=== PATIENT | male | born 1965 | race Asian ===

== ENCOUNTER 2019-07-06 12:28 | Emergency (ER) | payer MEDICAID, OTHER ==
[~2019-07-06] VITALS: Ht 167.6 cm; Wt 81.8 kg
[~2019-07-06 12:28] MED LIST: AMLO5TAB9 PO; BENZ1TAB70 PO; CLON0.1T83 PO; DIVA-78 PO; HYDR25TA84 PO; QUET400T PO; SIMV-261 PO
[2019-07-06] MEDS ORDERED: MORPHINE SULFATE 4 MG/ML SYRINGE IVP ONE (14:00)
[2019-07-06] MEDS ORDERED: SODIUM CHLORIDE 0.9% 1,000 ML IV ONE (14:00)
[2019-07-06] MEDS ORDERED: HALOPERIDOL LACTATE 5 MG/ML VIAL IM ONE (14:00)
[2019-07-06] MEDS ORDERED: DiphenhydrAMINE HCL 50 MG/ML VIAL IVP ONE (14:00)
[2019-07-06] MEDS ORDERED: BENZ1TAB10 PO (14:03)
[2019-07-06 14:42] LABS: BASOPHILS % (AUTO) 0.4 % (0.0-2.0); HEMATOCRIT 40.3 % (41-53); HEMOGLOBIN 13.8 g/dL (13.5-17.5); LYMPHOCYTES # (AUTO) 3.3 K/uL (1.0-4.8); LYMPHOCYTES % (AUTO) 32.7 % (22.0-44.0); MEAN CORPUSCULAR HEMOGLOBIN 31.5 pg (26.0-34.0); MEAN CORPUSCULAR HGB CONC 34.3 G/dL (31.0-37.0); MEAN CORPUSCULAR VOLUME 92 fL (80-100); MONOCYTES # (AUTO) 0.7 K/uL (0.1-1.0); MONOCYTES % (AUTO) 6.7 % (2.0-9.0); NEUTROPHILS # (AUTO) 5.6 K/uL (1.8-7.7); NEUTROPHILS % (AUTO) 55.2 % (40.0-70.0); PLATELET COUNT (AUTO) 295 K/uL (150-450); RED BLOOD CELL COUNT(AUTO) 4.38 MIL/uL (4.50-5.90); RED CELL DISTRIBUTION WIDTH 13.7 % (11.5-14.5)
[2019-07-06 15:02] LABS: ALANINE AMINOTRANSFERASE 22 U/L (12-78); ALBUMIN 3.5 g/dL (3.4-5.0); ALKALINE PHOSPHATASE 67 U/L (46-116); ANION GAP 6 mmol/L (8-16); ASPARTATE AMINOTRANSFERASE 18 U/L (15-37); BILIRUBIN,TOTAL 0.2 mg/dL (0.1-1.0); CALCIUM, TOTAL 9.2 mg/dL (8.8-10.5); CARBON DIOXIDE 29 mmol/L (22-29); CHLORIDE 92 mmol/L (98-107); GLOMERULAR FILTR. RATE CALC > 60 mL/min (>60); GLUCOSE,RANDOM 112 mg/dL (70-110); SODIUM SERUM 127 mmol/L (136-145); TOTAL PROTEIN, SERUM 7.8 g/dL (6.4-8.2); UREA NITROGEN, BLOOD 6 mg/dL (7-18)
[2019-07-06 15:12] LABS: POTASSIUM 2.7 mmol/L (3.5-5.1)
[2019-07-06] MEDS ORDERED: CLINDAMYCIN 900 MG/D5% WATER 50 ML IV ONE (15:15)
[2019-07-06] MEDS ORDERED: POTASSIUM CHLORIDE 20 MEQ ER TABLET PO PRN (15:30)
[2019-07-06] MEDS: POTASSIUM CHL 10 MEQ/WATER 50 ML IV PRN ×3 (15:41→18:50)
[2019-07-06 21:11] VITALS: BP 132/79
== END 2019-07-06 21:32 | disposition short-term general hospital (02) ==
LOC: EMS 12:28
DX: S60.444A External constriction of right ring finger, initial encounter (principal); E87.6 Hypokalemia; I96 Gangrene, not elsewhere classified; I10 Essential (primary) hypertension; E78.00 Pure hypercholesterolemia, unspecified; F20.9 Schizophrenia, unspecified; F17.210 Nicotine dependence, cigarettes, uncomplicated; W49.04XA Ring or other jewelry causing external constriction, initial encounter; Y93.89 Activity, other specified; Y92.89 Other specified places as the place of occurrence of the external cause; Y99.8 Other external cause status
CPT/HCPCS: 36415; 73130; 73140; 80053; 85025; 93005; 96365; 96366; 96368; 96372; 96375; 99285; J1200; J1630; J2270; J3480; J3490; J7030

== ENCOUNTER → 2019-07-30 | Outpatient (CLI) | payer OTHER ==
[~2019-07-30] MED LIST changes: +BENZ1TAB10 PO; -BENZ1TAB70 PO
== END | disposition home or self-care (01) ==
LOC: HBOWC 09:18
PROVIDERS: ATTEND Nurse Practitioner Adult Health
DX: S61.204D Unspecified open wound of right ring finger without damage to nail, subsequent encounter (principal); I10 Essential (primary) hypertension; E78.5 Hyperlipidemia, unspecified; I96 Gangrene, not elsewhere classified; E78.00 Pure hypercholesterolemia, unspecified; F17.210 Nicotine dependence, cigarettes, uncomplicated; X58.XXXD Exposure to other specified factors, subsequent encounter

== ENCOUNTER 2021-11-02 20:15 | Inpatient (IN) | payer OTHER ==
[~2021-11-02] VITALS: Ht 165.1 cm; Wt 59.0 kg
[~2021-11-02 20:15] MED LIST changes: +AMLO-257 PO; -AMLO5TAB9 PO; -BENZ1TAB10 PO; +BENZ1TAB96 PO; +CLON0.1T2 PO; -CLON0.1T83 PO; +DIVA-112 PO; -DIVA-78 PO
[2021-11-02 22:48] LABS: BASOPHILS % (AUTO) 0.5 % (0.0-2.0); EOSINOPHILS % (AUTO) 0.8 % (1.0-6.0); HEMATOCRIT 35.1 % (41-53); HEMOGLOBIN 11.9 g/dL (13.5-17.5); LYMPHOCYTES # (AUTO) 2.7 K/uL (1.0-4.8); LYMPHOCYTES % (AUTO) 19.9 % (22.0-44.0); MEAN CORPUSCULAR HEMOGLOBIN 30.5 pg (26.0-34.0); MEAN CORPUSCULAR HGB CONC 33.9 G/dL (31.0-37.0); MEAN CORPUSCULAR VOLUME 90 fL (80-100); MONOCYTES # (AUTO) 1.5 K/uL (0.1-1.0); MONOCYTES % (AUTO) 11.6 % (2.0-9.0); NEUTROPHILS % (AUTO) 67.2 % (40.0-70.0); PLATELET COUNT (AUTO) 533 K/uL (150-450); RED BLOOD CELL COUNT(AUTO) 3.91 MIL/uL (4.50-5.90); RED CELL DISTRIBUTION WIDTH 14.2 % (11.5-14.5)
[2021-11-02 22:59] LABS: ANION GAP 8 mmol/L (8-16); CALCIUM, TOTAL 8.7 mg/dL (8.8-10.5); CARBON DIOXIDE 27 mmol/L (22-29); CHLORIDE 95 mmol/L (98-107); CREATININE 0.89 mg/dL (0.60-1.30); GLUCOSE,RANDOM 106 mg/dL (70-110); POTASSIUM 3.7 mmol/L (3.5-5.1); SODIUM SERUM 130 mmol/L (136-145); UREA NITROGEN, BLOOD 8 mg/dL (7-18)
[2021-11-02 23:01] LABS: INR 1.1 (0.9-1.1); PROTHROMBIN TIME 11.3 SEC (9.4-11.6)
[2021-11-02 23:03] LABS: GLOMERULAR FILTR. RATE CALC > 60 mL/min (>60)
[2021-11-02 23:11] LABS: ALANINE AMINOTRANSFERASE 45 U/L (12-78); ALBUMIN 2.6 g/dL (3.4-5.0); ALKALINE PHOSPHATASE 104 U/L (46-116); ASPARTATE AMINOTRANSFERASE 36 U/L (15-37); BILIRUBIN,TOTAL 0.3 mg/dL (0.1-1.0); TOTAL PROTEIN, SERUM 7.1 g/dL (6.4-8.2)
[2021-11-02] MEDS ORDERED: SODIUM CHLORIDE 0.9% 100 ML ONE (23:12)
[2021-11-02] MEDS ORDERED: IOHEXOL 350 MG/ML 100 ML VIAL ONE (23:13)
[2021-11-02 23:22] LABS: COVID AG,FIA SOURCE NASAL SWAB
[2021-11-02] MEDS ORDERED: VANCOMYCIN 1GM/WATER(PEG/NADA) 200 ML IV ONE (23:30)
[2021-11-02] MEDS ORDERED: SODIUM CHLORIDE 0.9% 1,000 ML IV ONE (23:30)
[2021-11-02] MEDS ORDERED: VANCOMYCIN HCL 1 GM/D5% WATER 200 ML IV ONE (23:30)
[2021-11-03 03:00] VITALS: BP 120/62
[2021-11-03] MEDS ORDERED: ONDANSETRON HCL 4 MG/2 ML VIAL IVP PRN (04:15)
[2021-11-03] MEDS ORDERED: MORPHINE SULFATE 2 MG/ML SYRINGE IVP PRN (04:15)
[2021-11-03] MEDS: SODIUM CHLORIDE 0.9% 1,000 ML IV SCH ×2 (04:35→16:36)
[2021-11-03 08:18] VITALS: BP 116/58
[2021-11-03] MEDS: VANCOMYCIN HCL 1 GM/D5% WATER 200 ML IV SCH ×2 (08:53→21:14)
[2021-11-03] MEDS: HydrALAZINE HCL 25 MG TABLET PO SCH ×3 (08:54→21:14)
[2021-11-03] MEDS: CloNIDine HCL 0.1 MG TABLET PO SCH ×2 (08:54→21:14)
[2021-11-03] MEDS: AmLODIPine BESYLATE 5 MG TABLET PO SCH (08:54)
[2021-11-03] MEDS: HEPARIN SODIUM,PORCINE 5,000 UNITS/ML VIAL SQ SCH ×2 (08:54→16:35)
[2021-11-03] MEDS: BENZTROPINE MESYLATE 1 MG TABLET PO SCH (08:54)
[2021-11-03] MEDS: DIVALPROEX SODIUM 500 MG DR TABLET PO SCH ×2 (08:57→21:14)
[2021-11-03] MEDS ORDERED: BUPR-49 PO (11:55)
[2021-11-03] MEDS ORDERED: QUET100T34 PO (11:55)
[2021-11-03] MEDS: SIMVASTATIN 40 MG TABLET PO SCH (13:00)
[2021-11-03 16:19] VITALS: BP 112/66
[2021-11-03 19:37] VITALS: BP 109/60
[2021-11-03] MEDS: NICOTINE 21 MG/24 HOUR PATCH TD SCH (21:13)
[2021-11-03] MEDS: QUEtiapine FUMARATE 200 MG TABLET PO SCH (21:15)
[2021-11-04] MEDS: HEPARIN SODIUM,PORCINE 5,000 UNITS/ML VIAL SQ SCH ×4 (00:16→16:00)
[2021-11-04] MEDS: SODIUM CHLORIDE 0.9% 1,000 ML IV SCH ×3 (00:16→20:15)
[2021-11-04 04:33] VITALS: BP 124/68
[2021-11-04 07:37] VITALS: BP 135/80
[2021-11-04] MEDS: AmLODIPine BESYLATE 5 MG TABLET PO SCH (09:33)
[2021-11-04] MEDS: HydrALAZINE HCL 25 MG TABLET PO SCH ×3 (09:33→20:02)
[2021-11-04] MEDS: VANCOMYCIN HCL 1 GM/D5% WATER 200 ML IV SCH ×2 (09:33→20:00)
[2021-11-04] MEDS: BENZTROPINE MESYLATE 1 MG TABLET PO SCH (09:33)
[2021-11-04] MEDS: NICOTINE 21 MG/24 HOUR PATCH TD SCH (09:34)
[2021-11-04] MEDS: CloNIDine HCL 0.1 MG TABLET PO SCH ×2 (09:34→20:02)
[2021-11-04] MEDS: DIVALPROEX SODIUM 500 MG DR TABLET PO SCH ×2 (09:34→20:03)
[2021-11-04] MEDS: SIMVASTATIN 40 MG TABLET PO SCH (09:34)
[2021-11-04 16:02] VITALS: BP 123/74
[2021-11-04 19:46] VITALS: BP 120/59
[2021-11-04] MEDS: QUEtiapine FUMARATE 200 MG TABLET PO SCH (20:02)
[2021-11-05 04:29] VITALS: BP 114/58
[2021-11-05] MEDS: HEPARIN SODIUM,PORCINE 5,000 UNITS/ML VIAL SQ SCH ×6 (08:00→23:56)
[2021-11-05 08:39] VITALS: BP 103/61
[2021-11-05] MEDS: HydrALAZINE HCL 25 MG TABLET PO SCH ×3 (09:00→20:08)
[2021-11-05] MEDS: BENZTROPINE MESYLATE 1 MG TABLET PO SCH (09:00)
[2021-11-05] MEDS: SIMVASTATIN 40 MG TABLET PO SCH (09:01)
[2021-11-05] MEDS: AmLODIPine BESYLATE 5 MG TABLET PO SCH (09:01)
[2021-11-05] MEDS: CloNIDine HCL 0.1 MG TABLET PO SCH ×2 (09:01→20:07)
[2021-11-05] MEDS: NICOTINE 21 MG/24 HOUR PATCH TD SCH (09:01)
[2021-11-05] MEDS: DIVALPROEX SODIUM 500 MG DR TABLET PO SCH ×2 (09:01→20:09)
[2021-11-05] MEDS: SODIUM CHLORIDE 0.9% 1,000 ML IV SCH ×2 (09:51→20:11)
[2021-11-05] MEDS: VANCOMYCIN HCL 1 GM/D5% WATER 200 ML IV SCH ×2 (09:51→20:06)
[2021-11-05] MEDS: ALPRAZolam 1 MG TABLET PO SCH ×2 (10:01→20:08)
[2021-11-05 11:38] LABS: ANION GAP 9 mmol/L (8-16); CALCIUM, TOTAL 8.2 mg/dL (8.8-10.5); CARBON DIOXIDE 25 mmol/L (22-29); CHLORIDE 102 mmol/L (98-107); CREATININE 0.78 mg/dL (0.60-1.30); GLUCOSE,RANDOM 139 mg/dL (70-110); POTASSIUM 3.8 mmol/L (3.5-5.1); SODIUM SERUM 136 mmol/L (136-145); UREA NITROGEN, BLOOD 7 mg/dL (7-18)
[2021-11-05 11:40] LABS: GLOMERULAR FILTR. RATE CALC > 60 mL/min (>60)
[2021-11-05 16:10] VITALS: BP 112/68
[2021-11-05 19:12] VITALS: BP 110/61
[2021-11-05] MEDS: QUEtiapine FUMARATE 200 MG TABLET PO SCH (20:09)
[2021-11-05 20:19] VITALS: BP 146/70
[2021-11-06 04:36] VITALS: BP 109/69
[2021-11-06 08:06] VITALS: BP 118/64
[2021-11-06] MEDS: AmLODIPine BESYLATE 5 MG TABLET PO SCH (09:04)
[2021-11-06] MEDS: BENZTROPINE MESYLATE 1 MG TABLET PO SCH (09:04)
[2021-11-06] MEDS: CloNIDine HCL 0.1 MG TABLET PO SCH ×2 (09:04→20:31)
[2021-11-06] MEDS: ALPRAZolam 1 MG TABLET PO SCH ×2 (09:04→20:33)
[2021-11-06] MEDS: NICOTINE 21 MG/24 HOUR PATCH TD SCH (09:04)
[2021-11-06] MEDS: DIVALPROEX SODIUM 500 MG DR TABLET PO SCH ×2 (09:04→20:30)
[2021-11-06] MEDS: HydrALAZINE HCL 25 MG TABLET PO SCH ×4 (09:04→20:30)
[2021-11-06] MEDS: SIMVASTATIN 40 MG TABLET PO SCH (09:04)
[2021-11-06] MEDS: SODIUM CHLORIDE 0.9% 1,000 ML IV SCH ×3 (09:05→21:54)
[2021-11-06] MEDS: VANCOMYCIN HCL 1 GM/D5% WATER 200 ML IV SCH ×2 (09:10→20:31)
[2021-11-06] MEDS: ACETAMINOPHEN 325 MG TABLET PO PRN ×2 (09:14→16:29)
[2021-11-06 09:16] LABS: ANION GAP 6 mmol/L (8-16); CALCIUM, TOTAL 8.5 mg/dL (8.8-10.5); CARBON DIOXIDE 27 mmol/L (22-29); CHLORIDE 105 mmol/L (98-107); CREATININE 0.66 mg/dL (0.60-1.30); GLUCOSE,RANDOM 104 mg/dL (70-110); POTASSIUM 3.8 mmol/L (3.5-5.1); SODIUM SERUM 138 mmol/L (136-145)
[2021-11-06 09:17] LABS: GLOMERULAR FILTR. RATE CALC > 60 mL/min (>60)
[2021-11-06 10:21] LABS: UREA NITROGEN, BLOOD 11 mg/dL (7-18)
[2021-11-06] MEDS: MINERAL OIL/PETROLATUM 120 GM CREAM TP SCH ×2 (11:15→20:32)
[2021-11-06] MEDS: VITAMINS A & D 113 GM OINTMENT TP SCH ×2 (11:15→20:32)
[2021-11-06] MEDS: HEPARIN SODIUM,PORCINE 5,000 UNITS/ML VIAL SQ SCH ×2 (16:00→16:29)
[2021-11-06 16:30] VITALS: BP 100/56
[2021-11-06 20:20] VITALS: BP 111/61
[2021-11-06] MEDS: QUEtiapine FUMARATE 200 MG TABLET PO SCH (20:29)
[2021-11-07] MEDS: HEPARIN SODIUM,PORCINE 5,000 UNITS/ML VIAL SQ SCH ×4 (00:10→15:03)
[2021-11-07 04:45] VITALS: BP 106/63
[2021-11-07] MEDS: HydrALAZINE HCL 25 MG TABLET PO SCH (09:00)
[2021-11-07] MEDS: CloNIDine HCL 0.1 MG TABLET PO SCH ×2 (09:00→20:26)
[2021-11-07] MEDS: AmLODIPine BESYLATE 5 MG TABLET PO SCH (09:00)
[2021-11-07 09:16] VITALS: BP 106/56
[2021-11-07] MEDS: SODIUM CHLORIDE 0.9% 1,000 ML IV SCH ×2 (09:21→18:02)
[2021-11-07] MEDS: VANCOMYCIN HCL 1 GM/D5% WATER 200 ML IV SCH ×2 (09:21→20:26)
[2021-11-07] MEDS: VITAMINS A & D 113 GM OINTMENT TP SCH ×2 (09:23→20:31)
[2021-11-07] MEDS: MINERAL OIL/PETROLATUM 120 GM CREAM TP SCH ×2 (09:23→20:31)
[2021-11-07] MEDS: NICOTINE 21 MG/24 HOUR PATCH TD SCH (09:23)
[2021-11-07] MEDS: ALPRAZolam 1 MG TABLET PO SCH ×2 (09:24→20:27)
[2021-11-07] MEDS: SIMVASTATIN 40 MG TABLET PO SCH (09:24)
[2021-11-07] MEDS: BENZTROPINE MESYLATE 1 MG TABLET PO SCH (09:25)
[2021-11-07] MEDS: DIVALPROEX SODIUM 500 MG DR TABLET PO SCH ×2 (09:25→20:26)
[2021-11-07] MEDS: ACETAMINOPHEN 325 MG TABLET PO PRN (09:25)
[2021-11-07 16:00] VITALS: BP 124/68
[2021-11-07 20:24] VITALS: BP 127/66
[2021-11-07] MEDS: QUEtiapine FUMARATE 200 MG TABLET PO SCH (20:27)
== END 2021-11-07 21:10 | DRG 720 ==
LOC: EMS 20:16 → 6S 11-03 02:29 → 6N 11-03 05:15
PROVIDERS: ADMIT Internal Medicine; ATTEND Internal Medicine
PROC: 05HF33Z Insertion of Infusion Device into Left Cephalic Vein, Percutaneous Approach (ICD-10-PCS; principal; 2021-11-07)
DX: A41.9 Sepsis, unspecified organism (principal); E87.1 Hypo-osmolality and hyponatremia; D64.9 Anemia, unspecified; R07.89 Other chest pain; L03.115 Cellulitis of right lower limb; E78.00 Pure hypercholesterolemia, unspecified; F20.9 Schizophrenia, unspecified; I10 Essential (primary) hypertension; Z59.00 Homelessness unspecified; Z87.891 Personal history of nicotine dependence; Z74.01 Bed confinement status; Z79.899 Other long term (current) drug therapy
CPT/HCPCS: 36245; 36569; 73701; 76937; 80048; 80053; 83605; 83880; 85025; 85610; 85730; 87040; 87081; 93005; 93306; 93971; 99285; J1644; J3370; J7030; J7050; Q9967

== ENCOUNTER 2021-11-24 22:50 | Inpatient (IN) | payer OTHER ==
[~2021-11-24] VITALS: Ht 165.1 cm; Wt 59.0 kg
[~2021-11-24 22:50] MED LIST changes: +BUPR-49 PO; +QUET100T34 PO
[2021-11-25 00:26] LABS: COVID AG,FIA SOURCE NASAL SWAB
[2021-11-25 00:36] LABS: BASOPHILS % (AUTO) 0.6 % (0.0-2.0); EOSINOPHILS % (AUTO) 1.4 % (1.0-6.0); HEMATOCRIT 36.5 % (41-53); HEMOGLOBIN 12.4 g/dL (13.5-17.5); LYMPHOCYTES # (AUTO) 1.1 K/uL (1.0-4.8); LYMPHOCYTES % (AUTO) 10.9 % (22.0-44.0); MEAN CORPUSCULAR HEMOGLOBIN 29.7 pg (26.0-34.0); MEAN CORPUSCULAR VOLUME 87 fL (80-100); MONOCYTES # (AUTO) 2.4 K/uL (0.1-1.0); MONOCYTES % (AUTO) 24.7 % (2.0-9.0); NEUTROPHILS # (AUTO) 6.1 K/uL (1.8-7.7); NEUTROPHILS % (AUTO) 62.4 % (40.0-70.0); PLATELET COUNT (AUTO) 347 K/uL (150-450); RED BLOOD CELL COUNT(AUTO) 4.18 MIL/uL (4.50-5.90); RED CELL DISTRIBUTION WIDTH 15.7 % (11.5-14.5)
[2021-11-25 00:38] LABS: ANION GAP 9 mmol/L (8-16); CALCIUM, TOTAL 8.6 mg/dL (8.8-10.5); CARBON DIOXIDE 26 mmol/L (22-29); CHLORIDE 90 mmol/L (98-107); CREATININE 0.95 mg/dL (0.60-1.30); GLUCOSE,RANDOM 106 mg/dL (70-110); POTASSIUM 3.5 mmol/L (3.5-5.1); SODIUM SERUM 125 mmol/L (136-145); UREA NITROGEN, BLOOD 10 mg/dL (7-18)
[2021-11-25 00:44] LABS: ALANINE AMINOTRANSFERASE 29 U/L (12-78); ALBUMIN 2.9 g/dL (3.4-5.0); ALKALINE PHOSPHATASE 77 U/L (46-116); ASPARTATE AMINOTRANSFERASE 25 U/L (15-37); BILIRUBIN,TOTAL 0.2 mg/dL (0.1-1.0); TOTAL PROTEIN, SERUM 7.4 g/dL (6.4-8.2)
[2021-11-25 00:49] LABS: GLOMERULAR FILTR. RATE CALC > 60 mL/min (>60)
[2021-11-25] MEDS ORDERED: SODIUM CHLORIDE 0.9% 500 ML IV ONE (05:00)
[2021-11-25] MEDS ORDERED: COLL226C TP (06:30)
[2021-11-25] MEDS ORDERED: NA P133E4 PR (06:30)
[2021-11-25] MEDS ORDERED: MAGN-169 PO (06:30)
[2021-11-25] MEDS ORDERED: NICO-803 TD (06:30)
[2021-11-25] MEDS ORDERED: ACET-2247 PO (06:30)
[2021-11-25] MEDS ORDERED: ALPR-709 PO (06:30)
[2021-11-25] MEDS ORDERED: BISA10SU11 PR (06:30)
[2021-11-25] MEDS ORDERED: POTASSIUM CHLORIDE 20 MEQ ER TABLET PO PRN (08:30)
[2021-11-25] MEDS ORDERED: POTASSIUM CHL 10 MEQ/WATER 50 ML IV PRN (08:30)
[2021-11-25] MEDS ORDERED: ALBUTEROL SULFATE 2.5 MG/0.5 ML NEB SOLUTION NEB PRN (08:30)
[2021-11-25] MEDS ORDERED: SODIUM CHLORIDE 0.9% 1,000 ML IV ONE (08:30)
[2021-11-25] MEDS: FAMOTIDINE 20 MG TABLET PO SCH (08:46)
[2021-11-25] MEDS: MULTIVITAMINS WITH MINERALS, THERAPEUTIC TABLET PO SCH (08:46)
[2021-11-25] MEDS: ACETAMINOPHEN 325 MG TABLET PO PRN (08:46)
[2021-11-25] MEDS: DOCUSATE SODIUM 100 MG CAPSULE PO SCH ×2 (08:47→21:00)
[2021-11-25] MEDS ORDERED: REMDESIVIR 200 MG in SODIUM CHLORIDE 0.9% 250 ML IV ONE (09:00)
[2021-11-25] MEDS: HEPARIN SODIUM,PORCINE 5,000 UNITS/ML VIAL SQ SCH (17:05)
[2021-11-25 22:30] VITALS: BP 131/74
[2021-11-26 04:05] VITALS: BP 93/119
[2021-11-26] MEDS: ACETAMINOPHEN 325 MG TABLET PO PRN (04:53)
[2021-11-26] MEDS: HEPARIN SODIUM,PORCINE 5,000 UNITS/ML VIAL SQ SCH ×4 (08:00→23:30)
[2021-11-26 08:05] VITALS: BP 97/58
[2021-11-26] MEDS: DOCUSATE SODIUM 100 MG CAPSULE PO SCH ×2 (08:56→20:29)
[2021-11-26] MEDS: FAMOTIDINE 20 MG TABLET PO SCH (08:56)
[2021-11-26] MEDS: MULTIVITAMINS WITH MINERALS, THERAPEUTIC TABLET PO SCH ×2 (08:56→10:00)
[2021-11-26] MEDS ORDERED: SODIUM CHLORIDE 0.9% 1,000 ML IV ONE (10:00)
[2021-11-26] MEDS: REMDESIVIR 100 MG in SODIUM CHLORIDE 0.9% 250 ML IV SCH (11:24)
[2021-11-26 16:24] VITALS: BP 100/54
[2021-11-26 19:47] VITALS: BP 126/68
[2021-11-27 03:45] VITALS: BP 128/70
[2021-11-27] MEDS: MULTIVITAMINS WITH MINERALS, THERAPEUTIC TABLET PO SCH ×2 (09:00→09:03)
[2021-11-27] MEDS: FAMOTIDINE 20 MG TABLET PO SCH (09:03)
[2021-11-27] MEDS: HEPARIN SODIUM,PORCINE 5,000 UNITS/ML VIAL SQ SCH ×3 (09:03→23:38)
[2021-11-27] MEDS: DOCUSATE SODIUM 100 MG CAPSULE PO SCH ×2 (09:03→20:20)
[2021-11-27] MEDS: REMDESIVIR 100 MG in SODIUM CHLORIDE 0.9% 250 ML IV SCH (12:06)
[2021-11-27 17:50] VITALS: BP 143/83
[2021-11-27 20:11] VITALS: BP 153/77
[2021-11-28 05:00] VITALS: BP 146/85
[2021-11-28 07:19] LABS: ALANINE AMINOTRANSFERASE 52 U/L (12-78); ALBUMIN 3.3 g/dL (3.4-5.0); ALKALINE PHOSPHATASE 71 U/L (46-116); ANION GAP 14 mmol/L (8-16); ASPARTATE AMINOTRANSFERASE 80 U/L (15-37); BILIRUBIN,TOTAL 0.3 mg/dL (0.1-1.0); CALCIUM, TOTAL 9.4 mg/dL (8.8-10.5); CARBON DIOXIDE 26 mmol/L (22-29); CHLORIDE 100 mmol/L (98-107); GLUCOSE,RANDOM 85 mg/dL (70-110); POTASSIUM 4.8 mmol/L (3.5-5.1); SODIUM SERUM 140 mmol/L (136-145); TOTAL PROTEIN, SERUM 8.3 g/dL (6.4-8.2); UREA NITROGEN, BLOOD 20 mg/dL (7-18)
[2021-11-28 07:36] VITALS: BP 140/84
[2021-11-28 07:53] LABS: GLOMERULAR FILTR. RATE CALC > 60 mL/min (>60)
[2021-11-28] MEDS: MULTIVITAMINS WITH MINERALS, THERAPEUTIC TABLET PO SCH ×2 (09:00→09:10)
[2021-11-28] MEDS: DOCUSATE SODIUM 100 MG CAPSULE PO SCH ×2 (09:10→20:32)
[2021-11-28] MEDS: FAMOTIDINE 20 MG TABLET PO SCH (09:10)
[2021-11-28] MEDS: HEPARIN SODIUM,PORCINE 5,000 UNITS/ML VIAL SQ SCH ×2 (09:11→16:00)
[2021-11-28] MEDS: REMDESIVIR 100 MG in SODIUM CHLORIDE 0.9% 250 ML IV SCH (11:17)
[2021-11-28 20:35] VITALS: BP 137/75
[2021-11-29 04:19] VITALS: BP 125/72
[2021-11-29] MEDS: HEPARIN SODIUM,PORCINE 5,000 UNITS/ML VIAL SQ SCH ×3 (08:00→16:00)
[2021-11-29] MEDS: MULTIVITAMINS WITH MINERALS, THERAPEUTIC TABLET PO SCH ×2 (09:00→09:43)
[2021-11-29] MEDS: FAMOTIDINE 20 MG TABLET PO SCH (09:42)
[2021-11-29] MEDS: DOCUSATE SODIUM 100 MG CAPSULE PO SCH (09:42)
[2021-11-29] MEDS: REMDESIVIR 100 MG in SODIUM CHLORIDE 0.9% 250 ML IV SCH (11:26)
[2021-11-29 16:42] LABS: COVID AG,FIA SOURCE NASAL SWAB
== END 2021-11-29 20:59 | DRG 137 ==
LOC: EMS 22:52 → 6N 11-25 18:28
PROVIDERS: ADMIT Internal Medicine; ATTEND Internal Medicine
PROC: XW033E5 Introduction of Remdesivir Anti-infective into Peripheral Vein, Percutaneous Approach, New Technology Group 5 (ICD-10-PCS; principal; 2021-11-25)
DX: U07.1 COVID-19 (principal); D68.69 Other thrombophilia; I95.9 Hypotension, unspecified; E87.1 Hypo-osmolality and hyponatremia; I10 Essential (primary) hypertension; F20.9 Schizophrenia, unspecified; E78.00 Pure hypercholesterolemia, unspecified; J44.9 Chronic obstructive pulmonary disease, unspecified; Z87.891 Personal history of nicotine dependence; Z59.00 Homelessness unspecified
CPT/HCPCS: 71045; 80053; 85025; 85379; 86140; 99285; J1644; J7030; J7040; J7050; Q9967; 36415-L1; 36415-TC

== ENCOUNTER 2023-03-31 15:19 | Emergency (ER) | payer OTHER ==
[~2023-03-31] VITALS: Ht 165.1 cm; Wt 63.6 kg
[~2023-03-31 15:19] MED LIST changes: +ACET-2247 PO; +ALPR-709 PO; +BENZ1TAB84 PO; -BENZ1TAB96 PO; +BISA10SU11 PR; +COLL226C TP; +MAGN-169 PO; +NA P133E4 PR; +NICO-803 TD
[2023-03-31 15:25] VITALS: TEMP 98.6
[2023-03-31] MEDS ORDERED: LANO113C6 TP (15:30)
[2023-03-31] MEDS ORDERED: HALO5TAB2 PO (15:34)
[2023-03-31] MEDS ORDERED: DIPH25TA19 PO (15:34)
[2023-03-31] MEDS ORDERED: QUET100T34 PO (15:34)
[2023-03-31] MEDS ORDERED: CEPHALEXIN MONOHYDRATE 500 MG CAPSULE PO ONE (17:15)
[2023-03-31] MEDS ORDERED: CEPH-558 PO (17:39)
[2023-03-31 17:51] VITALS: BP 141/83; PULSE 84; RESP 16
== END 2023-03-31 17:53 | disposition home or self-care (01) ==
LOC: EMS 15:19
DX: S60.442A External constriction of right middle finger, initial encounter (principal); L03.011 Cellulitis of right finger; E78.00 Pure hypercholesterolemia, unspecified; I10 Essential (primary) hypertension; F20.9 Schizophrenia, unspecified; F17.210 Nicotine dependence, cigarettes, uncomplicated; W49.04XA Ring or other jewelry causing external constriction, initial encounter; Y93.89 Activity, other specified; Y92.89 Other specified places as the place of occurrence of the external cause; Y99.8 Other external cause status
CPT/HCPCS: 99283

== ENCOUNTER 2024-03-17 22:20 | Emergency (ER) | payer OTHER ==
[~2024-03-17] VITALS: Ht 167.6 cm; Wt 63.6 kg
[~2024-03-17 22:20] MED LIST changes: -ALPR-709 PO; -BENZ1TAB84 PO; -BISA10SU11 PR; -BUPR-49 PO; -CLON0.1T2 PO; -COLL226C TP; -NA P133E4 PR; -QUET100T34 PO; -QUET400T PO; +QUET50TA15 PO
[2024-03-17 22:52] VITALS: TEMP 98.7
[2024-03-17 23:57] LABS: BASOPHILS % (AUTO) 0.2 % (0.0-2.0); EOSINOPHILS % (AUTO) 1.3 % (1.0-6.0); HEMATOCRIT 39.3 % (41-53); HEMOGLOBIN 13.1 g/dL (13.5-17.5); LYMPHOCYTES % (AUTO) 9.1 % (22.0-44.0); MEAN CORPUSCULAR HEMOGLOBIN 33.2 pg (26.0-34.0); MEAN CORPUSCULAR HGB CONC 33.4 G/dL (31.0-37.0); MEAN CORPUSCULAR VOLUME 99 fL (80-100); MONOCYTES # (AUTO) 1.7 K/uL (0.1-1.0); MONOCYTES % (AUTO) 15.2 % (2.0-9.0); NEUTROPHILS # (AUTO) 8.4 K/uL (1.8-7.7); NEUTROPHILS % (AUTO) 74.2 % (40.0-70.0); PLATELET COUNT (AUTO) 164 K/uL (150-450); RED BLOOD CELL COUNT(AUTO) 3.95 MIL/uL (4.50-5.90); RED CELL DISTRIBUTION WIDTH 14.8 % (11.5-14.5); WHITE BLOOD COUNT (AUTO) 11.4 K/uL (4.5-11.0)
[2024-03-18 00:07] LABS: ANION GAP 10 mmol/L (8-16); CARBON DIOXIDE 27 mmol/L (22-29); CHLORIDE 97 mmol/L (98-107); CREATININE 1.46 mg/dL (0.60-1.30); GLOMERULAR FILTR. RATE CALC 50 mL/min (>60); GLUCOSE,RANDOM 104 mg/dL (70-110); POTASSIUM 3.8 mmol/L (3.5-5.1); SODIUM SERUM 134 mmol/L (136-145); UREA NITROGEN, BLOOD 15 mg/dL (7-18)
[2024-03-18 00:13] LABS: ALCOHOL, URINE DRUG SCREEN NEGATIVE (NEGATIVE); AMPHET/METH SCREEN,URINE NEGATIVE (NEGATIVE); BARBITURATE SCREEN, URINE NEGATIVE (NEGATIVE); BENZODIAZEPINES SCREEN,URINE NEGATIVE (NEGATIVE); CANNABINOID SCREEN,URINE NEGATIVE (NEGATIVE); COCAINE SCREEN,URINE NEGATIVE (NEGATIVE); METHADONE SCREEN, URINE NEGATIVE (NEGATIVE); OPIATE SCREEN,URINE NEGATIVE (NEGATIVE); PHENCYCLIDINE SCREEN,URINE NEGATIVE (NEGATIVE)
[2024-03-18 00:14] LABS: ALCOHOL, BLOOD (SERUM) < 3 mg/dL (0-10)
[2024-03-18 01:01] VITALS: BP 129/85; PULSE 94; RESP 20; O2SAT 99
== END 2024-03-18 01:41 | disposition home or self-care (01) ==
LOC: EMS 22:20
DX: R53.1 Weakness (principal); I10 Essential (primary) hypertension; E78.00 Pure hypercholesterolemia, unspecified; F20.9 Schizophrenia, unspecified; F17.210 Nicotine dependence, cigarettes, uncomplicated; Z79.899 Other long term (current) drug therapy
CPT/HCPCS: 99283; 80048; 85025; 36415; 80307; G0480